=== PATIENT | female | born 1995 | race Two or more races ===

== ENCOUNTER 2018-04-20 19:34 | Emergency (ER) | payer OTHER ==
[~2018-04-20] VITALS: Ht 162.6 cm; Wt 72.6 kg
[~2018-04-20 19:34] MED LIST: PRENATAL TABLE1 EACH PO
== END 2018-04-20 22:31 | disposition home or self-care (01) ==
LOC: ER 19:34
DX: O26.891 Other specified pregnancy related conditions, first trimester (principal); R53.81 Other malaise; Z34.81 Encounter for supervision of other normal pregnancy, first trimester

== ENCOUNTER 2018-06-26 21:28 | Outpatient (CLI) | payer OTHER | END 2018-06-27 09:52 | disposition home or self-care, planned readmission (81) | LOC: OBS/DEL 21:28 | DX: O98.812 Other maternal infectious and parasitic diseases complicating pregnancy, second trimester (principal); B37.49 Other urogenital candidiasis ==

== ENCOUNTER 2018-08-08 15:59 | Outpatient (CLI) | payer OTHER | END 2018-08-09 14:35 | disposition home or self-care (01) | LOC: OBS/DEL 15:59 | DX: O60.02 Preterm labor without delivery, second trimester (principal); Z34.82 Encounter for supervision of other normal pregnancy, second trimester ==

== ENCOUNTER 2018-10-11 19:05 | Inpatient (IN) | payer OTHER ==
[~2018-10-11] VITALS: Ht 162.6 cm; Wt 78.0 kg
== END 2018-10-13 15:46 | disposition home or self-care (01) | DRG 783 ==
LOC: LDR 19:05 → OB/GYN 23:18
PROVIDERS: Obstetrics & Gynecology
PROC: 0UB70ZZ Excision of Bilateral Fallopian Tubes, Open Approach (ICD-10-PCS; 2018-10-11)
PROC: 4A1HXCZ Monitoring of Products of Conception, Cardiac Rate, External Approach (ICD-10-PCS; 2018-10-11)
PROC: BY4FZZZ Ultrasonography of Third Trimester, Single Fetus (ICD-10-PCS; 2018-10-11)
PROC: 10D00Z1 Extraction of Products of Conception, Low, Open Approach (ICD-10-PCS; principal; 2018-10-11 20:00)
PROC: 4A033R1 Measurement of Arterial Saturation, Peripheral, Percutaneous Approach (ICD-10-PCS; 2018-10-12)
DX: O32.8XX0 Maternal care for other malpresentation of fetus, not applicable or unspecified (principal); O60.14X0 Preterm labor third trimester with preterm delivery third trimester, not applicable or unspecified; O34.211 Maternal care for low transverse scar from previous cesarean delivery; O75.82 Onset (spontaneous) of labor after 37 completed weeks of gestation but before 39 completed weeks gestation, with delivery by (planned) cesarean section; Z3A.36 36 weeks gestation of pregnancy; Z37.0 Single live birth; Z30.2 Encounter for sterilization